=== PATIENT | female | born 1935 | race Caucasian/White ===

== ENCOUNTER 2020-04-29 12:46 | Emergency (ER) | payer MEDICARE, MEDICAID ==
[~2020-04-29] VITALS: Ht 172.7 cm; Wt 61.4 kg
--- NOTE | 2020-04-29 12:50 | NUR ---
PT BIB [facility] FROM HER BROTHER'S HOUSE, WHERE SHE JUST MOVED FROM [place], [place]. PER PT AND EMS, PT RAN OUT OF HER OXYCODONE RX 3 DAYS AGO AND HASN'T BEEN ABLE TO ESTABLISH CARE WITH A PCP HERE. PT HAS HX OF FIBROMYALGIA & CHRONIC PAIN. REPORTS PAIN "GREATER THAN 10" OUT OF 10 CURRENTLY. NO OBVIOUS SIGNS OF DISTRESS. PT ALSO HAS HX OF TX, 4-VESSEL BYPASS, AFIB, EPILEPSY, HTN, HYPOTHYROID. ARRIVES TO ED A&OX4.
[2020-04-29] MEDS ORDERED: OXYcodone/APAP 5/325MG TABLET PO ONE (13:30)
[2020-04-29] MEDS ORDERED: OXYcodone/APAP 5/325MG TABLET ONE (13:31)
[2020-04-29 13:39] VITALS: BP 135/77
--- NOTE | 2020-04-29 14:21 | NUR ---
D/C INSTRUCTIONS RV'WD WITH PT. PT AGAIN ASKING FOR OXYCODONE RX. INSTRUCTED PT SHE MUST F/U WITH A LOCAL PCP FOR THAT RX. NAPROXEN RX GIVEN. PT STATES SHE WILL CALL HER BROTHER TO HAVE HIM PICK HER UP.
== END 2020-04-29 14:24 ==
LOC: EDBD 12:46 → ED 14:18
DX: M79.7 Fibromyalgia (principal); Z76.0 Encounter for issue of repeat prescription
CPT/HCPCS: 99283

== ENCOUNTER 2021-06-11 02:05 | Emergency (ER) | payer MEDICAID, MEDICARE ==
[~2021-06-11] VITALS: Ht 172.7 cm; Wt 71.0 kg
[2021-06-11] MEDS ORDERED: SODIUM CHLORIDE FLUSH 10ML SYR IVF ONE (04:00)
[2021-06-11] MEDS ORDERED: MORPHINE SULFATE 4 MG/ML, 1ML IVPush ONE ×2 (04:00→05:30)
[2021-06-11] MEDS ORDERED: ONDANSETRON 2MG/ML, 2ML IVPush ONE (04:00)
[2021-06-11] MEDS ORDERED: ONDANSETRON 2MG/ML, 2ML ONE (04:04)
[2021-06-11] MEDS ORDERED: MORPHINE SULFATE 4 MG/ML, 1ML ONE ×2 (04:05→05:06)
[2021-06-11 04:35] LABS: BASOPHILS % (AUTO) 1 % (0-1); EOSINOPHILS % (AUTO) 3 % (1-7); LYMPHOCYTES % (AUTO) 29 % (22-44); MEAN CORPUSCULAR HEMOGLOBIN 28.9 pg (27.0-34.8); MEAN CORPUSCULAR HGB CONC 33.4 g/dL (32.4-35.8); MEAN PLATELET VOLUME 8.4 fL (7.4-10.4); MONOCYTES % (AUTO) 9 % (2-9); NEUTROPHILS % (AUTO) 58 % (42-75); PLATELET COUNT 289 x10^3/uL (130-400); RED BLOOD COUNT 4.17 x10^6/uL (3.82-5.3); RED CELL DISTRIBUTION WIDTH 14.9 % (9.6-15.2)
[2021-06-11 04:44] LABS: ANION GAP 5 mmol/L (5-15); CALCIUM 9.3 mg/dL (8.5-10.1); CHLORIDE 110 mmol/L (98-107)
[2021-06-11 04:48] LABS: TROPONIN I < 0.015 ng/mL (0.000-0.045)
--- NOTE | 2021-06-11 05:00 | NUR ---
PATIENT C/O OF "SEVERE CHEST PAIN/ BACK PAIN." [facility] AWARE.
--- NOTE | 2021-06-11 05:30 | NUR ---
PATIENT CONTINUES TO C/O OF CHEST PAIN BACK EVEN S/P MORPHINE. [facility] AWARE.
[2021-06-11] MEDS ORDERED: MAALOX/HYOSCYAMINE/LIDOCAINE 45 ML BTL ONE (05:50)
[2021-06-11] MEDS ORDERED: MAALOX/HYOSCYAMINE/LIDOCAINE 45 ML BTL PO ONE (06:00)
[2021-06-11] MEDS ORDERED: OMNIPAQUE 350 MG/ML, 100ML BOTTLE ONE (06:18)
[2021-06-11 06:33] LABS: ALBUMIN 3.4 g/dL (3.4-5.0); BILIRUBIN, DIRECT 0.2 mg/dL (0.1-0.2); BILIRUBIN,INDIRECT 0.3 mg/dL (0.0-2.0); BILIRUBIN,TOTAL 0.5 mg/dL (0.2-1.0); TOTAL PROTEIN 7.2 g/dL (6.4-8.2)
--- NOTE | 2021-06-11 06:59 | NUR ---
First contact with patient, dc instruct and f/u provided. Pt verbalizes understanding of instruct. VSS, provided with cab voucher as pt states she came by [facility] and has no means of getting home.
[2021-06-11 07:23] VITALS: BP 135/88
== END 2021-06-11 07:25 | disposition home or self-care (01) ==
LOC: ED 02:10
DX: R10.84 Generalized abdominal pain (principal); I71.4 Abdominal aortic aneurysm, without rupture; R94.31 Abnormal electrocardiogram [ECG] [EKG]; R10.13 Epigastric pain; R51.9 Headache, unspecified; R07.9 Chest pain, unspecified; M79.7 Fibromyalgia; Z72.9 Problem related to lifestyle, unspecified
CPT/HCPCS: 36415; 70450; 71045; 74177; 80048; 80076; 83690; 84484; 85025; 93005; 96374; 96375; 96376; 99285; J2270; J2405; Q9967